=== PATIENT | male | born 1940 | race Caucasian/White ===

== ENCOUNTER 2020-04-25 20:36 | Emergency (ER) | payer MEDICARE ==
[2020-04-25 20:53] VITALS: BP 175/110
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
[2020-04-25] MEDS ORDERED: XYLOCAINE 1%-EPI 1:100,000 ONE (21:04)
[2020-04-25] MEDS ORDERED: TRIPLE ANTIBIOTIC OINTMENT TP ONE (21:41)
[2020-04-25] MEDS ORDERED: TRIPLE ANTIBIOTIC OINTMENT TP STA (21:43)
--- NOTE | 2020-04-25 22:14 | DIREP ---
PROCEDURE:CT HEAD OR BRAIN W/O CONTRAST COMPARISON:None. INDICATIONS:head injury TECHNIQUE:CT images were created without intravenous contrast. FINDINGS: VENTRICLES:Ex vacuo dilation. No obvious hydrocephalus. CEREBRUM:Involutional change in accordance with the patient's advanced age. Periventricular and deep white matter low densities consistent with the sequela of small-vessel ischemic disease. CEREBELLUM:Negative. BRAINSTEM:Negative. BASAL CISTERNS:Negative. HEMORRHAGE:No MASS LESION:No ACUTE INFARCT:No SKULL:Soft tissue irregularity and swelling in the right frontal region. Findings may be on the basis of traumatic injury. Please correlate clinically. No depressed skull fracture. SINUSES:Normal. OTHER:None CONCLUSION: 1. No intracranial hemorrhage, midline shift, or mass effect. 2. Soft tissue irregularity and swelling right frontal region. Findings may be on the basis of traumatic injury. Please correlate clinically. 3. Sequela of small-vessel ischemic disease. Dictated by: Emeka Ruth MD on 04/25/2020 at 10:07 PM
[2020-04-25] MEDS ORDERED: ADACEL VIAL IM ONE (22:22)
[2020-04-25] MEDS ORDERED: NORCO 7.5MG PO ONE (22:22)
--- NOTE | 2020-04-25 22:29 | NUR ---
ADACEL PER VERBAL ORDER FROM DR. ORTIZ, TDAP BOOSTER 0.5ML GIVEN IM AT THIS TIME TO THE RIGHT DELTOID. EX: 01/29/22 LOT: [id number] NORCO 7.5 GIVEN PO PER VERBAL ORDER FROM DR. ORTIZ AT THIS TIME WELL.
== END 2020-04-25 22:38 | disposition home or self-care (01) ==
LOC: ER 20:36
DX: S01.111A Laceration without foreign body of right eyelid and periocular area, initial encounter (principal); S01.21XA Laceration without foreign body of nose, initial encounter; W22.8XXA Striking against or struck by other objects, initial encounter; Y93.89 Activity, other specified; Y92.89 Other specified places as the place of occurrence of the external cause; Y99.8 Other external cause status
CPT/HCPCS: 12004; 12015; 70450; 90471; 90715; 99284